=== PATIENT | female | born 1985 | race Caucasian/White ===

== ENCOUNTER 2020-12-10 16:44 | Inpatient (IN) | payer OTHER ==
[~2020-12-10] VITALS: Ht 157.5 cm; Wt 63.5 kg
[2020-12-10 17:41] LABS: HEMOGLOBIN 9.7 gm/dl (12.3-15.3); RED BLOOD COUNT 3.67 M/UL (4.00-5.10)
[2020-12-11 06:24] LABS: HEMOGLOBIN 9.1 gm/dl (12.3-15.3)
[2020-12-11] MEDS ORDERED: IBUPROFEN600 MG PO ×2 (14:43→19:03)
[2020-12-11] MEDS ORDERED: HYDROCODON-ACE1 EAC4 PO ×2 (14:43→19:03)
[2020-12-11] MEDS ORDERED: FERROUS SULFAT325 M2 PO ×2 (14:43→19:03)
[2020-12-11] MEDS ORDERED: DOCUSATE SODIU100 MG PO ×2 (14:43→19:03)
[2020-12-12 15:14] LABS: RPR Reactive (Non Reactive); TREPONEMA PALLIDUM ANTIBODIES Reactive (Non Reactive)
== END 2020-12-11 16:01 | disposition home or self-care (01) | DRG 786 ==
LOC: GENOP 16:44 → OB 17:07
PROVIDERS: Obstetrics & Gynecology; ADMIT Obstetrics & Gynecology
PROC: 10D00Z1 Extraction of Products of Conception, Low, Open Approach (ICD-10-PCS; principal; 2020-12-10 17:22)
PROC: 3E02340 Introduction of Influenza Vaccine into Muscle, Percutaneous Approach (ICD-10-PCS; 2020-12-11)
PROC: 3E0234Z Introduction of Serum, Toxoid and Vaccine into Muscle, Percutaneous Approach (ICD-10-PCS; 2020-12-11)
DX: O32.1XX0 Maternal care for breech presentation, not applicable or unspecified (principal); O60.14X0 Preterm labor third trimester with preterm delivery third trimester, not applicable or unspecified; U07.1 COVID-19; O98.12 Syphilis complicating childbirth; O98.52 Other viral diseases complicating childbirth; O99.324 Drug use complicating childbirth; Z3A.35 35 weeks gestation of pregnancy; Z37.0 Single live birth; A53.9 Syphilis, unspecified; O13.5 Gestational [pregnancy-induced] hypertension without significant proteinuria, complicating the puerperium; O99.02 Anemia complicating childbirth; D64.9 Anemia, unspecified; Z88.0 Allergy status to penicillin; F15.90 Other stimulant use, unspecified, uncomplicated; F11.90 Opioid use, unspecified, uncomplicated; Z23 Encounter for immunization
CPT/HCPCS: 36415; 74018; 80307; 82800; 85014; 85018; 85025; 86592; 86593; 86780; 87635; 90471; 90472; 90686; 90715; C9113; J0690; J1170; J1885; J2210; J2250; J2405; J2590; J2704; J3010; J7120

== ENCOUNTER 2021-03-24 13:35 | Emergency (ER) | payer OTHER ==
[~2021-03-24 13:35] MED LIST: DOCUSATE SODIU100 MG PO; FERROUS SULFAT325 M2 PO; HYDROCODON-ACE1 EAC4 PO; IBUPROFEN600 MG PO
[2021-03-24 14:30] LABS: HEMOGLOBIN 11.1 gm/dl (12.3-15.3); RED BLOOD COUNT 4.57 M/UL (4.00-5.10); WHITE BLOOD COUNT 5.6 K/UL (4.5-11.0)
[2021-03-24 15:13] LABS: BUN/CREATININE RATIO 15 (0-10)
== END 2021-03-24 15:56 | disposition home or self-care (01) ==
LOC: ER1 13:35
PROVIDERS: Physician Assistant
DX: N93.9 Abnormal uterine and vaginal bleeding, unspecified (principal); F17.200 Nicotine dependence, unspecified, uncomplicated
CPT/HCPCS: 80053; 84702; 85025; 99284

== ENCOUNTER → 2021-03-25 | Day surgery (SDC) | payer OTHER ==
[2021-03-25 12:53] LABS: HEMOGLOBIN 10.6 gm/dl (12.3-15.3); RED BLOOD COUNT 4.5 M/UL (4.00-5.10); WHITE BLOOD COUNT 5.8 K/UL (4.5-11.0)
== END | disposition home or self-care (01) ==
LOC: OR 09:00
PROVIDERS: Obstetrics & Gynecology
DX: N84.0 Polyp of corpus uteri (principal); N97.0 Female infertility associated with anovulation; F17.210 Nicotine dependence, cigarettes, uncomplicated; Z86.19 Personal history of other infectious and parasitic diseases; Z88.0 Allergy status to penicillin; Z20.822 Contact with and (suspected) exposure to COVID-19
CPT/HCPCS: 36415; 84703; 85025; 86850; 86900; 86901; J1100; J2001; J2250; J2405; J2704; J2795; J3010; J7120; U0002